=== PATIENT | female | born 1950 | race Two or more races ===

== ENCOUNTER 2025-02-03 23:48 | Emergency (ER) | payer OTHER, MEDICAID ==
[~2025-02-03] VITALS: Ht 162.6 cm; Wt 56.3 kg
--- NOTE | 2025-02-04 00:47 | DVH ---
Exam: CT CT AB PEL WO CON-NO ORAL OR IV History: abd pain Comparison Study: None Technique: Multidetector spiral CT of the abdomen was performed from lung bases to pubic symphysis. I maging was performed without IV contrast. Axial, coronal and sagittal multiplanar reformats were obta ined from the axial data set by the technologist. Radiation Dose : 1. Abdomen/Pelvis: CTDIvol 5.07 mGy, DLP 5.07 mGy*cm. Findings: Evaluation of solid organs is limited due to lack of intravenous contrast use. Lung Bases: No acute findings. Mild scarring/atelectasis in the lung bases. Small right Bochdalek he rnia. Unremarkable imaged heart. Liver: Unremarkable. Gallbladder and Biliary Tree: Unremarkable Pancreas: Moderate atrophy. Spleen: Unremarkable. Adrenal Glands: Thickening without discrete nodule. Kidneys/Ureters: No urinary stone or obstruction. Mild left renal atrophy. Bladder: Grossly unremarkable for degree of distention. Pelvic Organs: Diminutive or absent uterus. Bowel: Moderate size hiatal hernia. No evidence of bowel wall thickening or obstruction. Colonic div erticulosis without evidence of diverticulitis. Moderate pancolonic stool burden. No evidence of appe ndicitis. Vasculature: Moderate atherosclerosis. Lymphadenopathy: No obvious adenopathy. Peritoneum: No ascites, free air, or fluid collection. Abdominal Wall: No significant hernia. Musculoskeletal: No acute fracture. Moderate multilevel spondylosis. Severe bilateral hip osteoarthr osis. IMPRESSION: 1. No acute abdominal or pelvic findings. 2. Moderate hiatal hernia. 3. Uncomplicated colonic diverticulosis. 4. Severe bilateral hip osteoarthrosis. Additional chronic and incidental findings above. Radiation optimization: All CT scans at this facility use at least one of these dose optimization donnell hniques: automated exposure control mA and/or kV adjustment per patient size (includes targeted exam s where dose is matched to clinical indication) or iterative reconstruction.
[2025-02-04 02:00] LABS: Hematocrit 41.9 % (36.0-46.0); Hemoglobin 14.1 g/dL (12.2-16.2); Mean Corpuscular Hemoglobin 30.1 pg (28.0-32.0); Mean Corpuscular Volume 89.4 fL (80.0-100.0); Nucleated Red Blood Cells % 0.2 %
[2025-02-04 02:12] LABS: Alanine Aminotransferase 36 U/L (7-40); Albumin 4.6 g/dL (3.2-4.8); Alkaline Phosphatase 114 U/L (46-116); Anion Gap 9 (5-15); BUN/Creatinine Ratio 13.2 (10.0-20.0); Blood Urea Nitrogen 16 mg/dL (9-23); Calcium 9.9 mg/dL (8.7-10.4); Glucose 94 mg/dL (74-106); Lipase 26 U/L (12-53); Potassium 4.1 mmol/L (3.5-5.1); Sodium 138 mmol/L (136-145); Total Protein 8.1 g/dL (5.7-8.2)
[2025-02-04 02:17] LABS: Bilirubin, Total 0.3 mg/dL (0.2-1.0); Carbon Dioxide 20 mmol/L (20-31); Chloride 109 mmol/L (98-107)
--- NOTE | 2025-02-04 03:15 | ED.PDOC ---
GI ASSESSMENT HPI Comments HPI: Initial Vitals BP: 125/98 HR: 94 RR: 18 O2: 96% Temp: 98.3 Past Medical History: Chronic constipation, hiatal hernia, hepatitis Past Surgical History: Hysterectomy, rectal prolapse Social History: Denies ETOH, smoking, and drug use. Medications: Allergies: CHRIS: HPI: Poor Historian. 74-year-old female presents to emergency depart for evaluation of three-week history of constipation. She went to urgent care for this evaluation today and her doctor told her that she probably has not obstruction and needs to go to the ER. Patient is on Percocet small dose and follows with pain management for chronic hip pain. Patient points to her left abdomen mostly where her pain is. Denies any nausea or vomiting or diarrhea. Pain is constant. Patient tries [id number] laxatives and lactulose without significant improvement. She has history of chronic constipation since age 21. Past Medical History: Past Surgical History: REVIEW OF SYSTEMS: CONSTITUTIONAL: Denies acute: fever, diaphoresis, chills, generalized weakness. HEAD: Denies acute: headache, photophobia Eyes: Denies acute: Double vision, vision loss, eye pain, eye discharge. EARS: Denies acute: tinnitus, hearing loss, ear discharge, ear pain, THROAT: Denies acute: sore throat, swelling, difficulty swallowing , pain with swallowing, change in voice. NECK: Denies acute: neck pain, neck swelling, stiff neck. HEART: Denies acute : chest pain, palpitations, LUNGS: Denies acute: SOB, wheezing, cough, hemoptysis ABDOMEN: Denies acute: abdominal pain, Nausea, Vomiting, diarrhea, melena , hematemesis, hematochezia SKIN: Denies acute: rash, redness, lesions, itchiness. EXTREMITIES: Denies acute: calf pain, numbness, tingling, weakness, denies pain in extremity. Denies acute: Low back pain. Neuro: Denies acute: focal neurological deficit, motor or sensory focal neurological deficit, tremors, seizure like activity, confusion, dizziness, change in mental status, loss of bowel or bladder function, cauda equina like symptoms. : Denies acute: dysuria, hematuria, flank pain, increase in urinary frequency. PSYCH: Denies acute: hallucination, suicidal ideation, homicidal ideation. FEMALE: Denies acute: abnormal vaginal bleeding, foul odor, unusual discharge. PHYSICAL EXAM: General: ----moderate----acute distress, awake and alert. Head: normocephalic, atraumatic. Neck: supple, trachea is midline, no swelling. Throat: Normal phonation. Eyes:, no erythema, no purulent discharge, no proptosis, no icterus. Heart: regular rate, regular rhythm, no significant murmur appreciated. Lungs: no apparent respiratory distress, Able to speak in full sentences. No wheezing, no rhonchi, no crackles. No stridors Clear to auscultation bilaterally. Abdomen: Left-sided abdominal tender to palpation, non distended, soft, no guarding, no rebound, + bowel sounds. Neuro: Awake, Alert, oriented to name, self, situation, follows commands GCS=15. Speech is normal. Skin: no petechia, no purpura, no cyanosis, non-pale, not jaundice. Lower extremities: --no - Pitting edema no deformity, no focal swelling, no calf TTP. Makes eye contact. moves all four extremities. Face: no apparent facial droop. Ambulating in the ED with a cane.. ED COURSE: DISCLAIMER: This medical document was created using an electronic medical record system with voice recognition software and computerized dictation system. Although this document has been carefully reviewed, there might still be some phonetic and typographical errors. Occasional wrong-word or "sound-alike" substitutions may have occurred due to the inherent limitations of voice recognition software. These areas are purely typographical due to imperfections of the software programs and do not reflect any compromise in the patient's medical care. Please read the chart carefully and recognize, using context, where these substitutions have occurred. 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 Was a procedure done?: No GI differential Dx Differential Diagnosis: Other (DDX include Diverticulitis, colitis, gastroenteritis, acute abdomen, bowel obstruction, enteritis, constipation, volvulus, , intraAbdominal mass/neoplasm, Inflammatory bowel disease, ischemic bowel, gastroparesis, narcotics abuse/dependency, fecal impaction, low fiber intake.) X-Ray, Labs, Meds, VS Vital Signs Date Time Temp Pulse Resp B/P (MAP) Pulse Ox O2 Delivery O2 Flow Rate FiO2 02/04/25 03:43 98.0 83 17 128/73 (91) 94 98.0 02/03/25 23:53 98.3 94 18 125/98 96 98.3 Lab Test 02/04/25 02:52 02/04/25 01:32 Range/Units Troponin I High Sensitivity < 3 L < 3 L </=34 ng/L White Blood Count 7.2 4.4-10.8 10^3/uL Red Blood Count 4.69 4.0-5.20 10^6/uL Hemoglobin 14.1 12.2-16.2 g/dL Hematocrit 41.9 36.0-46.0 % Mean Corpuscular Volume 89.4 80.0-100.0 fL Mean Corpuscular Hemoglobin 30.1 28.0-32.0 pg Mean Corpuscular Hemoglobin Concent 33.7 32.0-36.0 g/dL Red Cell Distribution Width 14.4 H 11.8-14.3 % Platelet Count 194 140-450 10^3/uL Mean Platelet Volume 9.8 6.9-10.8 fL Neutrophils (%) (Auto) 53.4 37.0-80.0 % Lymphocytes (%) (Auto) 31.8 10.0-50.0 % Monocytes (%) (Auto) 10.0 0.0-12.0 % Eosinophils (%) (Auto) 3.6 0.0-7.0 % Basophils (%) (Auto) 1.2 0.0-2.0 % Neutrophils # (Auto) 3.8 1.6-8.6 10 ^3/uL Lymphocytes # (Auto) 2.3 0.4-5.4 10 ^3/uL Monocytes # (Auto) 0.7 0-1.3 10 ^3/uL Eosinophils # (Auto) 0.3 0-0.8 10 ^3/uL Basophils # (Auto) 0.1 0-0.2 10 ^3/uL Nucleated Red Blood Cells 0.2 % Sodium Level 138 136-145 mmol/L Potassium Level 4.1 3.5-5.1 mmol/L Chloride Level 109 H 98-107 mmol/L Carbon Dioxide Level 20 20-31 mmol/L Anion Gap 9 5-15 Blood Urea Nitrogen 16 9-23 mg/dL Creatinine 1.21 H 0.550-1.02 mg/dL Glomerular Filtration Rate Calc 47 >90 mL/min BUN/Creatinine Ratio 13.2 10.0-20.0 Serum Glucose 94 74-106 mg/dL Lactic Acid Level 1.0 0.4-2.0 mmol/L Calcium Level 9.9 8.7-10.4 mg/dL Total Bilirubin 0.3 0.2-1.0 mg/dL Aspartate Amino Transferase (AST) 36 13-40 U/L Alanine Aminotransferase (ALT) 36 7-40 U/L Alkaline Phosphatase 114 46-116 U/L Total Protein 8.1 5.7-8.2 g/dL Albumin 4.6 3.2-4.8 g/dL Lipase 26 12-53 U/L [place] [id number] Ph: [phone] DIAGNOSTIC IMAGING Diagnostic Imaging Report : [id number] Signed PATIENT: ALESSANDRA PEREZ ACCT: [id number] UNIT: [id number] : 1950 LOC: ER ROOM / BED: / AGE / SEX: 74 / F ADM STATUS: REG ER SERVICE 0010 ORDERING PHYSICIAN: LUL MOYA DO PROCEDURE(s): ABPL - CT AB PEL WO CON-NO ORAL OR IV REASON: abd pain ORDER NUMBER(s): [id number], ACCESSION NUMBER(s): [id number] Exam: CT CT AB PEL WO CON-NO ORAL OR IV History: abd pain Comparison Study: None Technique: Multidetector spiral CT of the abdomen was performed from lung bases to pubic symphysis. Imaging was performed without IV contrast. Axial, coronal and sagittal multiplanar reformats were obtained from the axial data set by the technologist. Radiation Dose : 1. Abdomen/Pelvis: CTDIvol 5.07 mGy, DLP 5.07 mGy*cm. Findings: Evaluation of solid organs is limited due to lack of intravenous contrast use. Lung Bases: No acute findings. Mild scarring/atelectasis in the lung bases. Small right Bochdalek hernia. Unremarkable imaged heart. Liver: Unremarkable. Gallbladder and Biliary Tree: Unremarkable Pancreas: Moderate atrophy. Spleen: Unremarkable. Adrenal Glands: Thickening without discrete nodule. Kidneys/Ureters: No urinary stone or obstruction. Mild left renal atrophy. Bladder: Grossly unremarkable for degree of distention. Pelvic Organs: Diminutive or absent uterus. Bowel: Moderate size hiatal hernia. No evidence of bowel wall thickening or obstruction. Colonic diverticulosis without evidence of diverticulitis. Moderate pancolonic stool burden. No evidence of appendicitis. Vasculature: Moderate atherosclerosis. Lymphadenopathy: No obvious adenopathy. Peritoneum: No ascites, free air, or fluid collection. Abdominal Wall: No significant hernia. Musculoskeletal: No acute fracture. Moderate multilevel spondylosis. Severe bilateral hip osteoarthrosis. IMPRESSION: 1. No acute abdominal or pelvic findings. 2. Moderate hiatal hernia. 3. Uncomplicated colonic diverticulosis. 4. Severe bilateral hip osteoarthrosis. Additional chronic and incidental findings above. Radiation optimization: All CT scans at this facility use at least one of these dose optimization techniques: automated exposure control mA and/or kV adjustment per patient size (includes targeted exams where dose is matched to clinical indication) or iterative reconstruction. ATED BY: CHANDAN ROSADO MD DICTATED DATE/TIME: 02/04/2543 SIGNED BY: CHANDAN ROSADO MD SIGNED DATE/TIME: 02/04/2543 CC: Time of 1ST Reevaluation: 03:13 Reevaluation 1ST: Unchanged Patient Education/Counseling: Diagnosis, Treatment Family Education/Counseling: No Family Present Comments MDM: patient presented with the above HPI.--constipation----workup was initiated. patient was found with the above mentioned diagnosis. the following medications were ordered: please refer to order lists of meds and tests obtained by myself Dr. Moya. Patient ED course and VS have been stabilized. Patient has been reassessed in the ED and remained in a stable condition. Pertinent incidental findings were discussed with the patient and/or family. Patient/family voices understanding and is agreeable with plan. Patient has been observed in the ED adequate length of time to insure improvement/stability. Escalation of care considered: Consideration of escalation to observation or admission Patient was DISCHARGED home in a stable condition. All the reports of any imaging studies that were ordered by myself were reviewed by myself. SEPSIS Sepsis Screen Date sepsis recognized/suspect: Feb 03, 2025 Time Sepsis recognized/suspect: 2357 Recent Procedure: No On Antibiotic Therapy: No Respiratory Rate >20: No Heart Rate >90: No Temp<36 C (96.8 F) or >38.3 C: No SBP <90 or MAP <65 mmHG: No New Acute Mental Status Change: No Is the patient on CPAP, BIPAP,: No Physician Orders Ct Ab Pel Wo Con-No Oral Or Iv (02/04/25 00:10) Roofer Apprentice (02/04/25 ) Electrocardigram (02/04/25 01:03) Vital Signs Date Time Temp Pulse Resp B/P (MAP) Pulse Ox O2 Delivery O2 Flow Rate FiO2 02/04/25 03:43 98.0 83 17 128/73 (91) 94 98.0 02/03/25 23:53 98.3 94 18 125/98 96 98.3 Laboratory Tests Test 02/04/25 01:32 Lactic Acid Level 1.0 mmol/L (0.4-2.0) White Blood Count 7.2 10^3/uL (4.4-10.8) Departure 1 Departure Time of Disposition: 03:16 Impression: Primary Impression: Constipation Additional Impression: Hiatal hernia Disposition: 01 HOME / SELF CARE / HOMELESS Condition: Stable Additional Instructions: Additional instructions: You MUST follow-up with your primary care/family doctor in 1 to 2 days. If you are unable to see your primary care/family doctor, please return to our emergency room for re-assessment and re-evaluation in 1 to 2 days. Return to the emergency room here in our facility or to the nearest ER [facility] if your symptoms change or worsen. CONSULTATIONS: you MUST Follow-up for consultation as soon as possible with: -gastroenterology in 1-2 days. Please call for appointment. You MUST call the consultants office yourself to make an appointment. You may need to arrange that through your insurance and/or your primary/family doctor. If you are unable to see the operations consultant in 1 to 2 days, you must return to our emergency room (or any other ER of your choice) for re-assessment and re-evaluation. Adequate fluid hydration. Liquid diet in next 72 hours. Finish the GoLYTELY bottle as instructed. Below is a copy of your radiological report for follow up: [place] [address] Ph: [phone] DIAGNOSTIC IMAGING Diagnostic Imaging Report : [id number] Signed PATIENT: ALESSANDRA PEREZ ACCT: [id number] UNIT: [id number] : 1950 LOC: ER ROOM / BED: / AGE / SEX: 74 / F ADM STATUS: REG ER SERVICE 0010 ORDERING PHYSICIAN: LUL MOYA DO PROCEDURE(s): ABPL - CT AB PEL WO CON-NO ORAL OR IV REASON: abd pain ORDER NUMBER(s): [id number], ACCESSION NUMBER(s): [id number] Exam: CT CT AB PEL WO CON-NO ORAL OR IV History: abd pain Comparison Study: None Technique: Multidetector spiral CT of the abdomen was performed from lung bases to pubic symphysis. Imaging was performed without IV contrast. Axial, coronal and sagittal multiplanar reformats were obtained from the axial data set by the technologist. Radiation Dose : 1. Abdomen/Pelvis: CTDIvol 5.07 mGy, DLP 5.07 mGy*cm. Findings: Evaluation of solid organs is limited due to lack of intravenous contrast use. Lung Bases: No acute findings. Mild scarring/atelectasis in the lung bases. Small right Bochdalek hernia. Unremarkable imaged heart. Liver: Unremarkable. Gallbladder and Biliary Tree: Unremarkable Pancreas: Moderate atrophy. Spleen: Unremarkable. Adrenal Glands: Thickening without discrete nodule. Kidneys/Ureters: No urinary stone or obstruction. Mild left renal atrophy. Bladder: Grossly unremarkable for degree of distention. Pelvic Organs: Diminutive or absent uterus. Bowel: Moderate size hiatal hernia. No evidence of bowel wall thickening or obstruction. Colonic diverticulosis without evidence of diverticulitis. Moderate pancolonic stool burden. No evidence of appendicitis. Vasculature: Moderate atherosclerosis. Lymphadenopathy: No obvious adenopathy. Peritoneum: No ascites, free air, or fluid collection. Abdominal Wall: No significant hernia. Musculoskeletal: No acute fracture. Moderate multilevel spondylosis. Severe bilateral hip osteoarthrosis. IMPRESSION: 1. No acute abdominal or pelvic findings. 2. Moderate hiatal hernia. 3. Uncomplicated colonic diverticulosis. 4. Severe bilateral hip osteoarthrosis. Additional chronic and incidental findings above. Radiation optimization: All CT scans at this facility use at least one of these dose optimization techniques: automated exposure control mA and/or kV adjustment per patient size (includes targeted exams where dose is matched to clinical indication) or iterative reconstruction. ATED BY: CHANDAN ROSADO MD DICTATED DATE/TIME: 02/04/2543 SIGNED BY: CHANDAN ROSADO MD SIGNED DATE/TIME: 02/04/2543 CC: Discharged With: Self Critical Care Note Critical Care Time?: No I personally scribed for LUL MOYA DO ([email or web address]) on 02/04/25 at 03:15. Electronically submitted by Al Arguelles ([facility] I personally scribed for LUL MOYA DO ([email or web address]) on 02/04/25 at 03:20. Electronically submitted by Al Arguelles ([facility]). I personally scribed for LUL MOYA DO ([email or web address]) on 02/04/25 at 04:22. Electronically submitted by Al Arguelles ([facility]). LUL MOYA DO Feb 04, 2025 03:15
[2025-02-04 03:43] VITALS: BP 128/73; PULSE 83; RESP 17; TEMP 98; O2SAT 94
[2025-02-04] MEDS: GOLYTELY 4L KIT PO ONE (04:10)
== END 2025-02-04 05:22 | disposition home or self-care (01) ==
LOC: ER 02-04 00:03
DX: K44.9 Diaphragmatic hernia without obstruction or gangrene (principal); K59.00 Constipation, unspecified; Z90.710 Acquired absence of both cervix and uterus
CPT/HCPCS: 36415; 74176; 80053; 83605; 83690; 84484; 85025